=== PATIENT | female | born 1975 | race Caucasian/White ===

== ENCOUNTER 2019-10-22 14:59 | Emergency (ER) | payer BC ==
[~2019-10-22] VITALS: Ht 167.6 cm; Wt 56.8 kg
[2019-10-22 15:02] VITALS: TEMP 99
[2019-10-22 15:33] LABS: PROTHROMBIN TIME 11.3 SECONDS (9.7-12.8)
[2019-10-22 15:34] LABS: BASO % 0.9 % (0.0-2.0); EOS % 0.4 % (0-4.0); GRAN # 3.5 (1.4-6.5); GRAN % 77.1 % (42.2-75.2); HEMATOCRIT 37.8 % (37.0-47.0); HEMOGLOBIN 13.4 g/dl (12.5-16.0); LYMPH # 0.7 (1.2-3.4); LYMPH % 15.9 % (20.0-51.0); MEAN CELL VOLUME 96 fl (80.0-100.0); MEAN CORPUSCULAR HEMOGLOBIN 34 pg (27.0-31.0); MEAN CORPUSCULAR HGB CONC 35 g/dl (33.0-37.0); MEAN PLATELET VOLUME 10.5 fl (7.4-10.4); MONO # 0.2 (0.1-0.6); MONO % 5.3 % (1.7-9.3); PLATELET COUNT 52 K/mm3 (130-400); RED BLOOD COUNT 3.92 M/mm3 (4.10-5.30); REDCELL DISTRIBUTION WIDTH-CV 12.4 % (11.5-14.5)
[2019-10-22 15:39] LABS: ALANINE AMINOTRANSFERASE 133 U/L (4-34); ALBUMIN 4.6 gm/dL (3.5-5.0); ALKALINE PHOSPHATASE 124 U/L (50-136); ANION GAP 13 mmol/L (7-16); AST,SGOT 355 U/L (15-37); BILIRUBIN,TOTAL 1.4 mg/dL (0.0-1.0); BLOOD UREA NITROGEN 5 mg/dL (7-17); CALCIUM 9.1 mg/dL (8.4-10.2); CARBON DIOXIDE 23 mmol/L (22-30); CHLORIDE 92 mmol/L (98-107); CREATININE, serum 0.69 (0.52-1.25); GLUCOSE 222 mg/dL (74-106); POTASSIUM 4.3 mmol/L (3.4-5.0); SODIUM 128 mmol/L (137-145)
[2019-10-22 15:55] LABS: PROLACTIN 46.2 ng/mL (3.0-18.6)
[2019-10-22 15:56] LABS: TROPONIN-I < 0.012 ng/mL (0.000-0.035)
[2019-10-22 17:07] VITALS: BP 150/105; PULSE 108
== END 2019-10-22 17:58 | disposition home or self-care (01) ==
LOC: COL.ER 14:59
PROVIDERS: Family Medicine
DX: S01.01XA Laceration without foreign body of scalp, initial encounter (principal); F10.239 Alcohol dependence with withdrawal, unspecified; R55 Syncope and collapse; W01.10XA Fall on same level from slipping, tripping and stumbling with subsequent striking against unspecified object, initial encounter
CPT/HCPCS: J2060; J3411; J7030